=== PATIENT | female | born 1990 | race Caucasian/White ===

== ENCOUNTER 2016-06-29 23:21 | Emergency (ER) | payer OTHER ==
[2016-06-30 00:15] VITALS: BMI 32.9
[2016-06-30 00:43] LABS: BASO % 0.2 % (0.0-2.0); EOS # 0.3 K/uL (0.0-0.7); EOS % 2.1 % (0.0-4.0); HEMATOCRIT 36.9 % (34.0-47.0); LYMPH # 2.5 K/uL (1.0-4.3); LYMPH % 17.6 % (20.0-40.0); MEAN CELL VOLUME 87.4 fl (81.0-99.0); MEAN CORPUSCULAR HEMOGLOBIN 28.6 pg (27.0-31.0); MEAN CORPUSCULAR HGB CONC 32.7 g/dL (33.0-37.0); MEAN PLATELET VOLUME 9.3 fl (7.2-11.7); MONO # 1.5 K/uL (0.0-0.8); MONO % 10.5 % (0.0-10.0); NEUT # 9.8 K/uL (1.8-7.0); NEUT % 69.6 % (50.0-75.0); NRBC % 0.1 % (0.0-0.0); RED CELL DISTRIBUTION WIDTH 13.8 % (11.5-14.5); WHITE BLOOD COUNT 14.2 K/uL (4.8-10.8)
[2016-06-30 00:51] LABS: ALB/GLOB RATIO 0.9 (1.0-2.1); ALKALINE PHOSPHATASE 132 U/L (38-126); ALT/SGPT 34 U/L (9-52); AST/SGOT 31 U/L (14-36); BILIRUBIN,TOTAL 0.3 mg/dl (0.2-1.3); BLOOD UREA NITROGEN 7 mg/dl (7-17); CALCIUM 8.5 mg/dL (8.4-10.2); CARBON DIOXIDE 21 mmol/L (22-30); CHLORIDE 106 mmol/L (98-107); GFR AFRICAN-AMERICAN > 60; GLUCOSE,RANDOM 116 mg/dL (65-105); POTASSIUM 3.6 MMOL/L (3.6-5.0); SODIUM 138 mmol/l (132-148); TOTAL PROTEIN 6.3 G/DL (6.3-8.2); URIC ACID 2.2 mg/Dl (2.2-7.5)
[2016-06-30 00:53] LABS: RBC URINE 8 /hpf (0-3); URINE BACTERIA MOD (<OCC); URINE BILIRUBIN NEGATIVE (NEGATIVE); URINE BLOOD NEGATIVE (NEGATIVE); URINE COLOR YELLOW (YELLOW); URINE GLUCOSE (UA) NEG (Normal); URINE KETONE NEGATIVE (NEGATIVE); URINE LEUKOCYTE ESTERASE NEG Leu/uL (Negative); URINE PROTEIN NEGATIVE (NEGATIVE); URINE UROBILINOGEN 0.2-1.0 mg/dL (0.2-1.0); WBC URINE 2 /hpf (0-5)
[2016-06-30 01:01] LABS: PARTIAL THROMBOPLASTIN TIME 26.7 SECONDS (23.3-32.5)
--- NOTE | 2016-06-30 16:49 | OBHP ---
Datetime: 06/30/2016 06:35 IP Adm Impression: , intrauterine ; No Active Labor IP Chief Complaint Other: blurry vision IP Admit Plan: Observation/Evaluation Admit Comment, IP Provider: will obtain pre-eclamptic bloods and continue monitor BP Extremities - PN: Normal Abdomen - PN: Abnormal Breast - PN: Normal Lungs - PN: Normal Heart - PN: Normal Thyroid - PN: Normal Neurologic - PN: Normal HEENT - PN: Normal General - PN: Normal Presentation-Admit: C FHR - Baseline A Provider: 150's Contraction Comments Provider: none Comments, ACOG Physical Exam: awake alert w/o x3; Abd gravid NT Ext no edema or calf tenderness Gestation - Est Wks by US: 35+ EGA AdmitDate IP: 35.6 Vital Signs Provider: Reviewed IP Chief Complaint: Other NICHD Variability Prov Fetus A: Moderate 6-25bpm NICHD Accel Fetus A IP Provider: 10X10 NICHD Decel Fetus A IP Provider: None Dilatation, Provider: closed Effacement, Provider: none Genitourinary Exam: Normal DTRs - PN: Normal
== END 2016-06-30 01:20 | disposition home or self-care (01) ==
LOC: H.EROB2 23:21
DX: O47.03 False labor before 37 completed weeks of gestation, third trimester (principal); Z3A.35 35 weeks gestation of pregnancy

== ENCOUNTER 2016-07-20 05:20 | Inpatient (IN) | payer OTHER ==
[2016-07-20] MEDS: Lactated Ringer's 1,000 ML IV SCH ×2 (07:30→15:30)
[2016-07-20 07:33] VITALS: BMI 35.9
--- NOTE | 2016-07-20 07:33 | OBADHP ---
Datetime: 07/20/2016 07:32 Admit Comment, IP Provider: 25 yo edc 5/4 by 7wk us presents with c/o srom @ 4:30 she states she had 1 ctx prior to srom. She rates ctx 11/04. She denies vag bleeding or decreased fm. 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 Pt denies labia, perineal, rectal lesions. She is currently taking an antiviral for prophylaxis Obhx: top, spAb [employer] Hx: chlamydia in past; pshx: denies pmhx: denies nkda medic: pnv; antiviral medic for HSV outbreak prevention I: 38.5wk srom p: admit hiv, rpr, cbc, t_s Datetime: 07/20/2016 06:02 Pelvic Type - PN: Adequate Extremities - PN: Normal Abdomen - PN: Normal Lungs - PN: Normal Heart - PN: Normal Neurologic - PN: Normal HEENT - PN: Normal General - PN: Normal FHR - Baseline A Provider: 140 Amniotic Fluid Color, Provider: Clear Membranes, Provider: Ruptured Contraction Comments Provider: q5min Comments, ACOG Physical Exam: gbs neg/B+ Vital Signs Provider: Reviewed IP Chief Complaint: Suspected ruptured membranes NICHD Variability Prov Fetus A: Moderate 6-25bpm FHR Category Provider Fetus A: Category I Dilatation, Provider: 2 Effacement, Provider: 90 Genitourinary Exam: Normal DTRs - PN: Normal EGA AdmitDate IP: 38.5 IP Adm Impression: Term, intrauterine IP Admit Plan: Admit to unit; Initiate labor protocol Datetime: 06/30/2016 06:35 IP Chief Complaint Other: blurry vision Breast - PN: Normal Thyroid - PN: Normal Presentation-Admit: C Gestation - Est Wks by US: 35+ NICHD Accel Fetus A IP Provider: 10X10 NICHD Decel Fetus A IP Provider: None Datetime: 05/24/2016 13:09 Back - PN: Normal Pool Provider: Negative
[2016-07-20 07:47] VITALS: BP 117/67; PULSE 63; RESP 18; TEMP 98.2; O2SAT 100
[2016-07-20] MEDS ORDERED: Fentanyl/Bupivacaine HCl 250 ML EPI ONE (07:56)
[2016-07-20 08:02] LABS: MEAN CELL VOLUME 86.6 fl (81.0-99.0); MEAN CORPUSCULAR HEMOGLOBIN 29.1 pg (27.0-31.0); MEAN CORPUSCULAR HGB CONC 33.6 g/dL (33.0-37.0); WHITE BLOOD COUNT 11.7 K/uL (4.8-10.8)
--- NOTE | 2016-07-20 09:52 | OBADHP ---
Datetime: 07/20/2016 09:47 Admit Comment, IP Provider: GBS neg Cervical changes from yesterday and now ROM, admit to l/D. Extremities - PN: Normal Abdomen - PN: Abnormal Back - PN: Normal Breast - PN: Normal Lungs - PN: Normal Thyroid - PN: Normal Neurologic - PN: Normal HEENT - PN: Normal General - PN: Normal Presentation-Admit: Cephalic FHR - Baseline A Provider: 140's Amniotic Fluid Color, Provider: Clear Membranes, Provider: Ruptured Contraction Comments Provider: 2-5 min Comments, ACOG Physical Exam: Abd soft NT fundus at term, ext no calf tenderness Gestation - Est Wks by US: 38+ Pool Provider: Positive IP Hx Assessment: The History has been Reviewed and is Current IP Chief Complaint: Uterine contractions; Suspected ruptured membranes NICHD Variability Prov Fetus A: Moderate 6-25bpm NICHD Accel Fetus A IP Provider: 10X10 Dilatation, Provider: 2cm Effacement, Provider: 80% Station, Provider: -1 Genitourinary Exam: Normal DTRs - PN: Normal EGA AdmitDate IP: 38.5 IP Adm Impression: Term, intrauterine ; Ruptured Membranes IP Admit Plan: Admit to unit; Initiate labor protocol
[2016-07-20] MEDS ORDERED: Oxytocin 30 units/LR 500ML 30 U/500 ML BAG IV ONE (19:37)
[2016-07-20] MEDS ORDERED: cefOXitin Sodium 1 GM in Sodium Chloride 0.9% 100 ML IVPB ONE (23:24)
--- NOTE | 2016-07-21 01:21 | OBDS ---
MATERNAL INFORMATION Delivery Anesthesia: Epidural Estimated Blood Loss (ml): 250cc Provider Comments: Delivered a living baby girl appears term cried spontaneously 9/9, AF clear placenta delivered complete and intact Episiotomy done and repaired as above, no complications Tole rated procedure well Uterus contracted well. No tears or lacerations noted. LABOR SUMMARY EDC: 07/29/2016 00:00 No. Babies in Womb: 1 Attempted: No Labor Anesthesia: Epidural LABOR INFORMATION Reason for Induction: Not Applicable Onset of Labor: 07/20/2016 09:00 Oxytocin: Augmentation Group B Beta Strep: Negative Steroids Given: None Reason Steroids Not Administered: Not Applicable MEMBRANES Membranes Rupture Method: Spontaneous Rupture of Membranes: 07/20/2016 04:30 Amniotic Fluid Color: Clear Amniotic Fluid Amount: Moderate Amniotic Fluid Odor: Normal VAGINAL DELIVERY Episiotomy: Median Laceration Extension: N/A Laceration Type: None Laceration Repair: Not Applicable Laceration Repair Note: median 1st-2nd dg repaired by 2-0 chromic without any complication Sponge Count Correct: Yes Sharps Count Correct: Yes Count Comment: sponge and needle count correct Instrument count correct CSECTION DELIVERY Primary Indication: N/A Secondary Indication: N/A CSection Incision: N/A BABY A INFORMATION Born in Route : No : N/A Forceps: N/A Vacuum Extraction: N/A PRESENTATION/POSITION BABY A Presentation: Cephalic Cephalic Presentation: Vertex Vertex Position: Left Occipital Anterior Breech Presentation: N/A PLACENTA INFORMATION BABY A Placenta Method of Delivery: Spontaneous Placenta Status: Delivered
[2016-07-21] MEDS ORDERED: Oxytocin 30 units/LR 500ML 30 U/500 ML BAG IV SCH (01:32)
[2016-07-21] MEDS: Oxycodone/Acetaminophen 5/325 mg Tab PO PRN ×2 (08:40→16:55)
[2016-07-21 12:01] LABS: HEMATOCRIT 35.9 % (34.0-47.0); MEAN CELL VOLUME 87.2 fl (81.0-99.0); MEAN CORPUSCULAR HEMOGLOBIN 28.8 pg (27.0-31.0); MEAN CORPUSCULAR HGB CONC 33.1 g/dL (33.0-37.0); RED CELL DISTRIBUTION WIDTH 14.3 % (11.5-14.5)
[2016-07-21 12:06] LABS: WHITE BLOOD COUNT 20.3 K/uL (4.8-10.8)
[2016-07-21] MEDS ORDERED: Oxycodone/Acetaminophen 5/325 mg Tab PO PRN (12:28)
[2016-07-22] MEDS: Oxycodone/Acetaminophen 5/325 mg Tab PO PRN (00:11)
--- NOTE | 2016-07-22 07:46 | OBPPN ---
Datetime: 07/22/2016 07:41 PP Pain Prov: Within normal limits PP Pain Prov comment: no SOB, chest pains or leg pain PP Nausea Prov: Denies PP Flatus Prov: Yes PP Breasts Prov: Normal PP Lungs Prov: Normal PP Abdomen/Uterus Prov: Abnormal PP Lochia Prov: Normal PP Vulva/Perineum Prov: Abnormal PP CVA Tenderness Prov: Normal PP Extremities Prov: Abnormal PP C/S Incision Prov: Not Applicable PP Progress Prov: Normal PP Comments Phys Exam Prov: Abd soft ND fundus firm at umb not tender, perineum repaired Ext mild ed olga bilaterally but no calf tenderness. PP Impression Prov: Normal progression PP Plan Prov: Continue present management PP Progress Note Prov: Continue PP care OOB and ambulation, increase po fluids IP PP Procedures: None
[2016-07-22] MEDS ORDERED: Benzocaine/Menthol SPRAY TOP PRN (14:48)
--- NOTE | 2016-07-23 09:22 | OBPPN ---
Datetime: 07/23/2016 09:17 PP Pain Prov: Within normal limits PP Pain Prov comment: No SOB chest pains or leg pains PP Nausea Prov: Denies PP Flatus Prov: Yes PP Breasts Prov: Normal PP Lungs Prov: Normal PP Abdomen/Uterus Prov: Abnormal PP Lochia Prov: Normal PP Vulva/Perineum Prov: Abnormal PP CVA Tenderness Prov: Normal PP Extremities Prov: Abnormal PP C/S Incision Prov: Not Applicable PP Progress Prov: Normal PP Comments Phys Exam Prov: Abd soft ND fundus firm below the umb, NT Perineum repaired, ext mild ed olga bilaterally but no calf tenderness PP Impression Prov: Normal progression PP Plan Prov: Discharge PP Progress Note Prov: D/C home and folllow up office 4-6 wks IP PP Procedures: None Vital Signs Provider PP: Reviewed
--- NOTE | 2016-07-23 09:24 | OBDCSUM ---
Datetime: 07/23/2016 09:20 Discharged to, Provider: Home Follow up at, Provider: Dr Solomon Disch Instr Activity: Bedrest; May be up to bathroom; May be up for meals; May Shower Disch Instr Diet: Regular Discharge Instructions, Provider: Routine instructions given Discharge Diagnosis, Provider: Term Delivered Discharge Time: 07/23/2016 09:20 Follow up in weeks, Provider: 4-6 wks Disch Referrals: None Contraception discussed, Prov: Yes Disch Activity Restrictions: No exercising; No lifting; No driving; Minimize walking; Minimize stair -climbing; No sexual activity; Nothing in vagina - [place], tampons, douche Discharge Comment, Provider: pelvic and bed rest Contraception after Delivery: Undecided
== END 2016-07-23 13:55 | disposition home or self-care (01) | DRG 372 ==
LOC: H.EROB2 05:20 → H.L&D 07:36 → H.OB/GYN 07-21 03:35
PROVIDERS: ADMIT Specialist; ATTEND Specialist
PROC: 4A1HXCZ Monitoring of Products of Conception, Cardiac Rate, External Approach (ICD-10-PCS; 2016-07-20)
PROC: 0W8NXZZ Division of Female Perineum, External Approach (ICD-10-PCS; principal; 2016-07-21)
PROC: 10E0XZZ Delivery of Products of Conception, External Approach (ICD-10-PCS; 2016-07-21)
DX: O10.92 Unspecified pre-existing hypertension complicating childbirth (principal); B00.89 Other herpesviral infection; O98.52 Other viral diseases complicating childbirth; Z79.899 Other long term (current) drug therapy; Z37.0 Single live birth; Z3A.38 38 weeks gestation of pregnancy